=== PATIENT | female | born 1945 | race Hispanic/Latino ===

== ENCOUNTER 2016-09-30 06:21 | Observation (INO) | payer MEDICARE, OTHER ==
[2016-09-30] MEDS ORDERED: Bupivacaine 0.5% Inj(30mL) ONE (07:24)
[2016-09-30] MEDS ORDERED: Propofol 10 mg/ml Inj (20 ML) ONE (07:37)
[2016-09-30] MEDS ORDERED: Lidocaine 1% Inj (20ml) ONE (07:37)
[2016-09-30] MEDS ORDERED: Sevoflurane - Inhalation Anesthetic Liq (250 ml) ONE (07:37)
[2016-09-30] MEDS ORDERED: Succinylcholine 200 mg/10 ml Inj IV ONE (07:37)
[2016-09-30] MEDS ORDERED: Rocuronium 10 mg/ml (5 ml) ONE (07:37)
[2016-09-30] MEDS ORDERED: Neostigmine Methylsulfate 3mg/3ml Syringe IV ONE (09:01)
[2016-09-30] MEDS ORDERED: Lactated Ringer's 1,000 ML IV SCH (10:19)
[2016-09-30] MEDS ORDERED: HYDROmorphone 0.5 mg/0.5 ml ISec IVP PRN (10:19)
--- NOTE | 2016-09-30 10:24 | PCM.SURG1 ---
Surgeon's Initial Post Op Note - Surgeon's Notes Surgeon: Dr. Lawson Motor Block Mechanic: Dr. Santiago PGY3, Dr. Villalpando PGY1 Type of Anesthesia: General IV, IV Sedation Pre-Operative Diagnosis: Incisional Hernia Operative Findings: Adhesions to the abdominal wall. Defect did not have bowel in defect. Post-Operative Diagnosis: same Operation Performed: Incisional Hernia repair with mesh placement Specimen/Specimens Removed: Mesh placed Estimated Blood Loss: EBL {In ML}: 5 Post-Op Condition: Good Date of Surgery/Procedure: 09/30/16 Time of Surgery/Procedure: 08:30
[2016-09-30] MEDS ORDERED: HYDROmorphone 0.5 mg/0.5 ml ISec ONE ×2 (11:22→11:42)
[2016-09-30] MEDS ORDERED: HYDROmorphone 0.5 mg/0.5 ml ISec IVP ONE (11:43)
[2016-09-30 15:50] VITALS: RESP 18
[2016-09-30] MEDS ORDERED: Oxycodone/Acetaminophen 5/325 mg Tab PO PRN (16:04)
[2016-09-30] MEDS ORDERED: Sodium Chloride 0.9% 1,000 ML IV STA ×2 (16:11→22:14)
[2016-09-30 18:37] VITALS: BMI 20.9
[2016-09-30] MEDS: Benzocaine/Menthol (Cepacol) Lozenge MT PRN (20:31)
[2016-10-01] MEDS: Benzocaine/Menthol (Cepacol) Lozenge MT PRN ×2 (04:22→11:37)
[2016-10-01] MEDS: Oxycodone/Acetaminophen 5/325 mg Tab PO PRN ×2 (07:01→12:43)
[2016-10-01 07:36] LABS: BASO # 0.01 K/mm3 (0.0-2.0); BASO % 0.1 % (0.0-3.0); EOS # 0.1 (0.0-0.7); EOS % 1.7 % (1.5-5.0); GRAN # 4.75 (1.4-6.5); GRAN % 67.8 % (50.0-68.0); HEMOGLOBIN 10.8 gm/dL (12.0-16.0); LYMPH # 1.5 (1.2-3.4); LYMPH % 21.3 % (22.0-35.0); MEAN CELL VOLUME 89.2 fL (80.0-105.0); MEAN CORPUSCULAR HEMOGLOBIN 28.4 pg (25.0-35.0); MEAN CORPUSCULAR HGB CONC 31.9 g/dl (31.0-37.0); MEAN PLATELET VOLUME 9.9 fl (7.0-11.0); MONO # 0.6 (0.1-0.6); MONO % 9.1 % (1.0-6.0); PLATELET COUNT 146 10^3/uL (120.0-450.0); RED CELL DISTRIBUTION WIDTH 14.6 % (11.5-14.5)
[2016-10-01 07:46] LABS: BLOOD UREA NITROGEN 20 mg/dL (7-21); CALCIUM 8.3 mg/dL (8.4-10.5); GFR AFRICAN-AMERICAN > 60; GFR NON-AFRICAN AMERICAN > 60
[2016-10-01] MEDS ORDERED: MULTIVIT IRON MIN PO SCH (10:00)
[2016-10-01] MEDS ORDERED: FOLIC ACID PO SCH (10:00)
[2016-10-01] MEDS ORDERED: HYDROCHLOROTHIAZIDE PO SCH (10:00)
[2016-10-01] MEDS ORDERED: OLMESARTAN PO SCH (10:00)
[2016-10-01] MEDS ORDERED: [UNRECOGNIZED DRUG - OTHER] PO SCH (10:00)
--- NOTE | 2016-10-01 11:29 | RAD ---
PROCEDURE: Left Knee Radiographs. HISTORY: Pain. COMPARISON: None. FINDINGS: BONES: Normal. No fracture. JOINTS: There is moderate joint space narrowing medial compartment JOINT EFFUSION: None. OTHER FINDINGS: None. IMPRESSION: Moderate joint space narrowing medial compartment
--- NOTE | 2016-10-01 16:29 | CP.PCM.PN ---
Subjective - Date & Time of Evaluation Date of Evaluation: 10/01/16 Time of Evaluation: 16:30 - Subjective Subjective: General Surgery- Dr. Lawson Pt seen and examined. She does not want to leave due to continued dizziness post -op. Had a similar episode 2 years ago that spontaneously resolved after 4- 6months. Pain is manageable, denies N/V CP SOB VEGA. Tolerating diet, ambulates with assistance due to dizziness. Objective - Vital Signs/Intake and Output Vital Signs (last 24 hours): Temp Pulse Resp BP Pulse Ox 98 F 60 18 100/60 97 10/01/16 07:30 10/01/16 09:19 10/01/16 07:30 10/01/16 09:19 10/01/16 07:30 Intake and Output: 10/01/16 10/01/16 06:59 18:59 Intake Total 720 840 Balance 720 840 - Medications Medications: Current Medications Acetaminophen (Tylenol 325mg Tab) 650 mg PO Q4H PRN PRN Reason: Pain, moderate (4-7) Last Admin: 10/01/16 04:22 Dose: 650 mg Aspirin (Ecotrin) 81 mg PO DAILY [facility] Last Admin: 10/01/16 09:19 Dose: 81 mg Atorvastatin Calcium (Lipitor) 20 mg PO DAILY [facility] Last Admin: 10/01/16 09:20 Dose: 20 mg Benzocaine/Menthol (Cepacol Sore Throat) 1 ricky MT Q2H PRN PRN Reason: Sore Throat Last Admin: 10/01/16 11:37 Dose: 1 ricky Hydrochlorothiazide (Microzide) 12.5 mg PO DAILY [facility] Last Admin: 10/01/16 09:20 Dose: 12.5 mg Letrozole (Femara) 2.5 mg PO DAILY [facility] Last Admin: 10/01/16 11:38 Dose: 2.5 mg Losartan Potassium (Cozaar) 50 mg PO DAILY [facility] Last Admin: 10/01/16 09:19 Dose: 50 mg Meclizine HCl (Antivert) 25 mg PO Q6H [facility] Last Admin: 10/01/16 11:37 Dose: 25 mg Non-Formulary Medication (Multivit,Iron,Min 5/Folic Acid [Strovite Forte Caplet] ) 1 tab PO DAILY [facility] Last Admin: 10/01/16 09:23 Dose: Not Given Ondansetron HCl (Zofran Inj) 4 mg IVP Q4 PRN PRN Reason: Nausea/Vomiting Oxycodone/Acetaminophen (Percocet 5/325 Mg Tab) 1 tab PO Q4H PRN PRN Reason: Pain, moderate (4-7) Stop: 10/04/16 06:52 Last Admin: 10/01/16 12:43 Dose: 1 tab - Labs Labs: 10/01/16 06:45 10/01/16 06:45 - Constitutional Appears: No Acute Distress - Eye Exam Eye Exam: EOMI, PERRL. absent: Periorbital swelling, Scleral icterus Pupil Exam: PERRL. absent: Miosis - Neck Exam Neck Exam: Full ROM, Normal Inspection - Respiratory Exam Respiratory Exam: Clear to Ausculation Bilateral, NORMAL BREATHING PATTERN. absent: Accessory Muscle Use, Rhonchi, Wheezes - Cardiovascular Exam Cardiovascular Exam: REGULAR RHYTHM, +S1, +S2 - GI/Abdominal Exam GI & Abdominal Exam: Soft, Tenderness. absent: Distended, Firm, Guarding Additional comments: appropriately tender around incision - Extremities Exam Extremities Exam: Normal Capillary Refill - Neurological Exam Neurological Exam: Awake, CN II-XII Intact, Oriented x3. absent: Motor Sensory Deficit - Psychiatric Exam Psychiatric exam: Agitated - Skin Skin Exam: Normal Color Assessment and Plan - Assessment and Plan (Free Text) Assessment: 71F with dizziness POD#1 incisional hernia repair with mesh Plan: - Dizziness post op, most likely BPPV * Pt refused to do Blaise-Halpike maneuver - will follow Dr. Ori loya to treat dizziness - no surgical intervention at this time - plan to discharge tomorrow will discuss with Dr. Renny Villalpando PGY1
--- NOTE | 2016-10-01 19:28 | US ---
HISTORY: Leg pain and swelling. Evaluate for DVT PHYSICIAN(S): Rajan Victoria MD. TECHNIQUE: Duplex sonography and color-flow Doppler with graded compression were used to evaluate the deep venous systems of both lower extremities. FINDINGS: The visualized deep venous systems of both lower extremities are sonographically normal and compressible. Normal wave forms and augmentation are seen. There is no sonographic evidence for deep venous thrombosis in the visualized segments of both lower extremities. IMPRESSION: No sonographic evidence for deep venous thrombosis in the visualized segments of both lower extremities.
[2016-10-02] MEDS: Benzocaine/Menthol (Cepacol) Lozenge MT PRN ×2 (02:55→09:48)
[2016-10-02] MEDS: Oxycodone/Acetaminophen 5/325 mg Tab PO PRN ×2 (08:49→14:04)
[2016-10-02] MEDS ORDERED: Multivitamin With Minerals Tab PO SCH (09:32)
[2016-10-02 09:50] VITALS: BP 120/62; PULSE 70
[2016-10-02 10:41] VITALS: TEMP 98.2; O2SAT 96
--- NOTE | 2016-10-02 11:39 | CP.PCM.DIS ---
Provider - Provider Date of Admission: 10/01/16 16:18 Attending physician: Amaury Lawson MD Primary care physician: Filippo Rehman MD Consults: Dr. Rehman Time Spent in preparation of Discharge (in minutes): 30 Hospital Course - Lab Results Lab Results: Most Recent Lab Values WBC 7.0 10^3/ul (4.5-11.0) D 10/01/16 06:45 RBC 3.80 10^6/uL (3.5-6.1) 10/01/16 06:45 Hgb 10.8 gm/dL (12.0-16.0) L 10/01/16 06:45 Hct 33.9 % (36.0-48.0) L 10/01/16 06:45 MCV 89.2 fL (80.0-105.0) 10/01/16 06:45 MCH 28.4 pg (25.0-35.0) 10/01/16 06:45 MCHC 31.9 g/dl (31.0-37.0) 10/01/16 06:45 RDW 14.6 % (11.5-14.5) H 10/01/16 06:45 Plt Count 146 10^3/uL (120.0-450.0) 10/01/16 06:45 MPV 9.9 fl (7.0-11.0) 10/01/16 06:45 Gran % 67.8 % (50.0-68.0) 10/01/16 06:45 Lymph % (Auto) 21.3 % (22.0-35.0) L 10/01/16 06:45 Cam[place] % (Auto) 9.1 % (1.0-6.0) H 10/01/16 06:45 Eos % (Auto) 1.7 % (1.5-5.0) 10/01/16 06:45 Baso % (Auto) 0.1 % (0.0-3.0) 10/01/16 06:45 Gran # 4.75 (1.4-6.5) 10/01/16 06:45 Lymph # 1.5 (1.2-3.4) 10/01/16 06:45 Cam[place] # 0.6 (0.1-0.6) 10/01/16 06:45 Eos # 0.1 (0.0-0.7) 10/01/16 06:45 Baso # 0.01 K/mm3 (0.0-2.0) 10/01/16 06:45 Sodium 140 mmol/L (132-148) 10/01/16 06:45 Potassium 3.8 mmol/L (3.6-5.0) 10/01/16 06:45 Chloride 107 mmol/L (95-110) 10/01/16 06:45 Carbon Dioxide 25 mmol/L (21-33) 10/01/16 06:45 Anion Gap 12 (10-20) 10/01/16 06:45 BUN 20 mg/dL (7-21) 10/01/16 06:45 Creatinine 0.9 mg/dL (0.5-1.4) 10/01/16 06:45 Est GFR ( Amer) > 60 10/01/16 06:45 Est GFR (Non-Af Amer) > 60 10/01/16 06:45 Random Glucose 84 mg/dL (70-110) 10/01/16 06:45 Calcium 8.3 mg/dL (8.4-10.5) L 10/01/16 06:45 - Hospital Course Hospital Course: Pt presented to same day surgery for repair of incisional hernia. Pt under went laparosopic incisional hernia repair with mesh. Pt tolerated the procedure well. Pt later developed dizziness and was kept for observation . Pt was seen by her primary care physician and was treated for dizziness. Pt is no longer complaining of dizziness and cleared for discharge. Discharge Exam - Head Exam Head Exam: ATRAUMATIC - Eye Exam Eye Exam: EOMI, Normal appearance - Respiratory Exam Respiratory Exam: NORMAL BREATHING PATTERN. absent: Accessory Muscle Use, Chest Wall Tenderness, Rales, Rhonchi, Wheezes - Cardiovascular Exam Cardiovascular Exam: REGULAR RHYTHM, +S1, +S2. absent: Gallop, Rubs - GI/Abdominal Exam GI & Abdominal Exam: Normal Bowel Sounds, Soft. absent: Firm, Guarding Additional comments: appropriately tender around incision - Extremities Exam Extremities exam: full ROM - Neurological Exam Neurological exam: Alert, CN II-XII Intact, Oriented x3 - Psychiatric Exam Psychiatric exam: Normal Affect, Normal Mood - Skin Skin Exam: Intact, Normal Color Discharge Plan - Discharge Medications Prescriptions: Meclizine [Meclizine*] 25 mg PO Q6H #30 tab - Follow Up Plan Condition: GOOD Disposition: HOME/ ROUTINE Additional Instructions: May shower, do not soak in tub or go swimming in the ocean. Can eat regular foods. No lifting over 10lbs for 4-6 weeks. See back in office within 1 week. Referrals: Filippo Rehman MD [Primary Care Provider] - Amaury Lawson MD [Staff Provider] -
--- NOTE | 2016-10-11 15:55 | OP ---
PROCEDURE DATE: 10/03/2016 PREOPERATIVE DIAGNOSIS: Ventral hernia. POSTOPERATIVE DIAGNOSIS: Ventral hernia. PROCEDURE: Laparoscopic ventral herniorrhaphy. DESCRIPTION OF PROCEDURE: In the operating room, the patient was identified, name of procedure, laterality, and my wander. The palpated ventral hernia was seen and after the successful time out with the patient was identified by name, number, procedure, laterality, my wander and the consent form. The patient had an NG tube and Smiley placed. The prepped belly was unexposed from the left flank with the patient then rolled from the operative side. On the left side, a subcostal incision was made that was dissected down to the fascia. The Visiport was placed after the wound was injected with about 2 L of CO2. The Visiport entered the abdomen nicely. There were some adhesions by the hernia, but after 2 elective 5 mm ports were placed in the left lower quadrant and by the ASIS, the dissection proceeded nicely. There were some crossing of instruments, but very quickly we were able to get the hernia reduced to see good clean edges. The hernia mesh was measured and the reasonable size was placed. The stitch was placed laparoscopically to close the defect rather nicely. This having been done, the mesh was placed on top of it with a single suture in the midline to center the mesh. sutured with 2 rolls of jamir. The centering stitch was cut. The wounds were injected with Marcaine. Looking around, nothing else was untoward. There was no bleeding. There were no issues. The CO2 was removed. The port was then closed under direct vision manually. The patient was taken to recovery room in good condition and correct. Amaury Lawson MD
== END 2016-10-02 17:17 | disposition home or self-care (01) ==
LOC: SDS 06:21 → 5RSO 17:48 → SDS 17:48 → 5RSO 10-01 16:18
PROVIDERS: ADMIT Surgery; ATTEND Surgery
DX: K43.2 Incisional hernia without obstruction or gangrene (principal); T88.8XXA Other specified complications of surgical and medical care, not elsewhere classified, initial encounter; H81.10 Benign paroxysmal vertigo, unspecified ear; I10 Essential (primary) hypertension
CPT/HCPCS: 36415; 49654; 73560; 80048; 85025; 93970; C1781; G0378; J0330; J0690; J1170; J1885; J2405; J2704; J2710; J3010; J7040; J7120

== ENCOUNTER 2017-01-05 09:46 | Inpatient (IN) | payer MEDICARE, OTHER ==
--- NOTE | 2017-01-05 10:35 | ED PDOC ---
Arrival/HPI - General Chief Complaint: Trauma Time Seen by Provider: 01/05/17 10:00 Historian: Patient - History of Present Illness Narrative History of Present Illness (Text): 01/05/17 10:20 A 71 year old female, whose past medical history includes abdominal hernia, presents to the emergency department complaining of dizziness and fall. Patient reports yesterday she fell while walking down the stairs and was helped up afterwards. She states that after fall she initially had some difficulty walking. She is unable to describe to me how she fell, but does not believe she lost consciousness. States prior to the fall she had not been experiencing any chest pain or palpitations or shortness of breath or any symptoms. After falling, she reports difficulty ambulating and persistent dizziness. Denies loss of vision. Denies neck pain. Denies weakness, but reports some difficulty moving her right leg she believes is secondary to the pain. Denies hip or back or pelvis pain. Denies melena or hematuria or bloody stools. No PMD 01/05/17 17:34 Time/Duration: 24 hours Past Medical History - Provider Review Nursing Documentation Reviewed: Yes - Infectious Disease Hx of Infectious Diseases: None - Cardiac Hx Cardiac Disorders: Yes Hx Pacemaker: No - Pulmonary Hx Respiratory Disorders: Yes Hx Chronic Obstructive Pulmonary Disease (COPD): (SOB Dyspnea) Hx Pneumonia: Yes Hx Pulmonary Embolism: Yes - Neurological Hx Neurological Disorder: Yes HX Cerebrovascular Accident: Yes (rt leg weaness) - HEENT Hx HEENT Disorder: No - Renal Hx Renal Disorder: No - Endocrine/Metabolic Hx Endocrine Disorders: No - Hematological/Oncological Hx Blood Disorders: Yes Hx Cancer: Yes (Right Breast CA with Lumpectomy) Other/Comment: Received chemo - Integumentary Hx Dermatological Disorder: No - Musculoskeletal/Rheumatological Hx Musculoskeletal Disorders: Yes (BACK PAIN AT TIMES) Hx Arthritis: Yes Hx Falls: No - Gastrointestinal Hx Gastrointestinal Disorders: Yes Hx Gastroesophageal Reflux: Yes - Genitourinary/Gynecological Hx Genitourinary Disorders: Yes Hx Prostate Cancer: Yes (rt breast) - Psychiatric Hx Psychophysiologic Disorder: No Hx Emotional Abuse: No Hx Physical Abuse: No Hx Substance Use: No - Surgical History Other/Comment: Right Breat Lumpectomy - Anesthesia Hx Anesthesia: Yes Hx Anesthesia Reactions: No Hx Malignant Hyperthermia: No - Suicidal Assessment Feels Threatened In Home Enviroment: No Family/Social History - Physician Review Nursing Documentation Reviewed: Yes Family/Social History: No Known Family HX Smoking Status: Never Smoked Hx Alcohol Use: No Hx Substance Use: No Allergies/Home Meds Allergies/Adverse Reactions: Allergies iodine Allergy (Severe, Verified 01/05/17 09:49) SWELLING Home Medications: Home Meds Medication Instructions Recorded Confirmed Atorvastatin [Lipitor] 20 mg PO DAILY 03/18/15 01/05/17 Aspirin [Ecotrin] 81 mg PO DAILY 07/31/16 01/05/17 Letrozole [Femara] 2.5 mg PO DAILY 09/30/16 01/05/17 Apixaban [Eliquis] 5 mg PO BID 01/05/17 01/05/17 Olmesartan/Hydrochlorothiazide 1 tab PO DAILY 01/05/17 01/05/17 [Benicar Hct 20-12.5 mg Tablet] Review of Systems - Review of Systems Constitutional: Fatigue. absent: Fevers Eyes: absent: Vision Changes, Photophobia, Eye Pain ENT: absent: Hearing Changes, Sore Throat, Rhinorrhea Respiratory: absent: SOB Cardiovascular: absent: Chest Pain, Palpitations, [place]O Gastrointestinal: absent: Abdominal Pain, Nausea, Vomiting Genitourinary Female: absent: Dysuria, Frequency Musculoskeletal: Other (left ankle, right knee, and posterior head pain). absent: Back Pain Skin: absent: Rash Neurological: Dizziness. absent: Focal Weakness, Speech Changes Endocrine: absent: Polyuria, Polydipsia Hemo/Lymphatic: absent: Easy Bleeding, Easy Bruising Psychiatric: absent: Depression, Suicidal Ideation Physical Exam - Physical Exam Narrative Physical Exam (Text): Head: Atraumatic. Normocephalic. No deformity. No soft tissue swelling. Eyes: PERRL. EOMI. Conjunctivae are not pale. Visual acuity and visual ENT: Mucous membranes are moist and intact. Oropharynx is clear and symmetric. No orbital tenderness. Neck: Supple. Full ROM. No JVD. No lymphadenopathy. No midline tenderness. No soft tissue swelling. Trachea midline. Cardiovascular: Regular rate. Regular rhythm. No murmurs, rubs, or gallops. Distal pulses are 2+ and symmetric. Pulmonary/Chest: No evidence of respiratory distress. Clear to auscultation bilaterally. No wheezing, rales or rhonchi. Abdominal: Soft and non-distended. There is no tenderness. No rebound, guarding, or rigidity. No organomegaly. Good bowel sounds. Back: No CVA tenderness. No midline back pain. No deformity. No pain with straight leg testing. Extremities: No edema. No cyanosis. No clubbing. There is NO hip pain bilaterally with rotation or range of motion. There is pain lateral aspect of right knee with soft tissue swelling, mild, no ligamentous laxity, negative Drawer's sign. No achilled pain. There is mild pain lateral aspect of left ankle over malleolus but minimal swelling, no deformity. No left knee pain noted. No deformity to shoulder/elbow/wrist pain with ROM or on palpation. Skin: Skin is warm and dry. No petechiae. No purpura. No lacerations. Neurological: Alert, awake, and oriented to person, place, time, and situation. Normal speech. No facial droop. Patient dizzy when sitting up and standing with gait instability. Patient with some difficulty lifting right leg and holding off bed for more than 5 seconds suspect secondary to pain vs. muscle weakness as reflexes intact. No focal weakness in upper extremities. Psychiatric: Good eye contact. Normal interaction, affect, and behavior. 01/05/17 17:37 Vital Signs Reviewed: Yes Vital Signs Temp Pulse Resp BP Pulse Ox 01/05/17 16:42 80 18 128/67 98 01/05/17 15:00 82 18 124/78 98 01/05/17 11:47 71 18 122/67 99 01/05/17 09:55 98.0 F 72 17 115/71 98 Temperature: Afebrile Blood Pressure: Normal Pulse: Regular Respiratory Rate: Normal Appearance: Positive for: Uncomfortable Pain Distress: Moderate Mental Status: Positive for: Alert and Oriented X 3 Medical Decision Making ED Course and Treatment: 01/05/17 10:26 Impression: 71 year old female with dizziness and fall. Patient reports head injury, on blood thinner, reports persistent dizziness. Plan: -- EKG -- Head CT -- Chest X-ray -- Left Ankle X-Ray -- Right Knee X-Ray -- Labs -- Urinalysis -- Reassess and disposition Progress Notes: Patient's history reviewed multiple times. She states she recently fell, but denies loc but is uncertain how she fell. CT head obtained as patient with dizziness after head injury, on blood thinner. CT head ordered and read by radiologist: 01/05/2017 12:[address] IMPRESSION: No acute intracranial hemorrhage. Suspect minimal chronic periventricular white matter ischemic changes. Mild generalized volume loss. Dictator: Joseph Stokes DO Patient with knee pain, but nv intact with no hip pain. I suspect difficulty with movements of right leg secondary to musculoskeletal etiology. 01/05/2017 13:33 Knee X-Ray IMPRESSION: No acute displaced fracture no dislocation. Mild DJD. Dictator: Joseph Stokes DO 01/05/2017 13:36 Chest X-ray IMPRESSION: No active disease. Dictator: Joseph Stokes DO On re-exam, she is unable to ambulate initially as she reports dizziness. She is not hypotensive, she is not complaining of recent URI, symptoms not worse with turning head. She reports that "I've had a stroke before that affected my leg". I reviewed past available MRI from previous year. Given persistent dizziness, right leg pain, will admit for observation for serial neuro exams, ? concussive symptoms, monitoring for uncertain circumstance of fall to evaluate for arrhythmia, cardiovascular disease, and consult ortho. Treatment plan discussed with PMD Dr. Suad Rehman, accepts admission to his service. I reviewed imaging studies as well as limitations of these studies with patient, as she is persistently symptomatic will admit for observation, patient agreeable to treatment plan. Patient continues to deny chest pain or shortness of breath, no calf pain, no hypoxia. 01/05/17 18:04 Abnormal findings on chest xray as interpreted by radiologist reviewed and communicated. Patient at this time with no chest pain or shortness of breath. No hemoptysis. I reviewed previous chest xray available from prior Emergency room visit and this finding was noted. Communicated with PMD abnormal findings for follow-up. - Lab Interpretations Lab Results: 01/05/17 10:37 01/05/17 10:37 Lab Results 01/05/17 10:37: Sodium 140, Potassium 4.4, Chloride 101, Carbon Dioxide 30, Anion Gap 13, BUN 21, Creatinine 0.9, Est GFR ( Amer) > 60, Est GFR (Non- Af Amer) > 60, Random Glucose 102, Calcium 9.5, Total Bilirubin 0.6, AST 33, ALT 24, Alkaline Phosphatase 55, Lactate Dehydrogenase 590, Total Creatine Kinase 93, Troponin I < 0.01, Total Protein 7.2, Albumin 4.2, Globulin 3.0, Albumin/Globulin Ratio 1.4 01/05/17 10:37: PT 10.7, INR 0.99, APTT 28.7 01/05/17 10:37: WBC 5.9, RBC 4.34, Hgb 12.4, Hct 38.2, MCV 88.0, MCH 28.6, MCHC 32.5, RDW 13.6, Plt Count 164, MPV 10.7, Gran % 57.3, Lymph % (Auto) 28.8, [place] % (Auto) 11.5 H, Eos % (Auto) 2.2, Baso % (Auto) 0.2, Gran # 3.38, Lymph # 1.7, [facility] # 0.7 H, Eos # 0.1, Baso # 0.01 I have reviewed the lab results: Yes - RAD Interpretation Radiology Orders: 01/05/17 10:26 HEAD W/O CONTRAST [CT] Stat 01/05/17 10:27 CHEST ONE VIEW [RAD] Stat 01/05/17 10:28 ANKLE LEFT 3 VIEWS ROUTINE [RAD] Stat KNEE RIGHT 2 VIEWS (AP & LAT) [RAD] Stat - EKG Interpretation EKG Interpretation (Text): 01/05/17 17:42 EKG at 12:45 normal sinus rhythm rate of 67 wth incomplete right bundle branch block, left anterior fascicular block Interpreted by ED Physician: Yes Type: 12 lead EKG - Medication Orders Current Medication Orders: Discontinued Medications Acetaminophen (Tylenol 325mg Tab) 650 mg PO ONCE STA Stop: 01/05/17 12:56 Last Admin: 01/05/17 13:06 Dose: 650 mg [facility] Pain/Vitals Document 01/05/17 13:06 EWO (Rec: 01/05/17 13:06 [id number] [id number]) Pain Reassessment Is This A Pain ReAssessment? No Sleep Is patient sleeping during reassessment? No Presence of Pain Presence of Pain No Pain Scale Used Pain Scale Used Numeric Location Left, Right or Bilateral Left Pain Location Body Site Knee Description Intermittent - Scribe Statement The provider has reviewed the documentation as recorded by the Amy Tse Provider Scribe Attestation: All medical record entries made by the Stevenibe were at my direction and personally dictated by me. I have reviewed the chart and agree that the record accurately reflects my personal performance of the history, physical exam, medical decision making, and the department course for this patient. I have also personally directed, reviewed, and agree with the discharge instructions and disposition. Disposition/Present on Arrival - Present on Arrival Any Indicators Present on Arrival: Yes History of DVT/PE: Yes History of Uncontrolled Diabetes: No Urinary Catheter: No History of Decub. Ulcer: No History Surgical Site Infection Following: None - Disposition Have Diagnosis and Disposition been Completed?: Yes Diagnosis: Dizziness, Right leg pain, Gait disturbance Disposition: HOSPITALIZED Disposition Time: 12:00 Patient Plan: Admission, Observation Patient Problems: Current Active Problems Problem Status Onset Dizziness Acute Gait disturbance Acute Right leg pain Acute Condition: FAIR
[2017-01-05 10:51] LABS: ALB/GLOB RATIO 1.4 (1.1-1.8); ALKALINE PHOSPHATASE 55 U/L (38-126); ALT/SGPT 24 U/L (7-56); AST/SGOT 33 U/L (14-36); BASO # 0.01 K/mm3 (0.0-2.0); BASO % 0.2 % (0.0-3.0); BILIRUBIN,TOTAL 0.6 mg/dL (0.2-1.3); BLOOD UREA NITROGEN 21 mg/dL (7-21); CALCIUM 9.5 mg/dL (8.4-10.5); CARBON DIOXIDE 30 mmol/L (21-33); CHLORIDE 101 mmol/L (98-107); EOS # 0.1 (0.0-0.7); EOS % 2.2 % (1.5-5.0); GFR AFRICAN-AMERICAN > 60; GLUCOSE,RANDOM 102 mg/dL (70-110); GRAN # 3.38 (1.4-6.5); GRAN % 57.3 % (50.0-68.0); HEMATOCRIT 38.2 % (36.0-48.0); LYMPH # 1.7 (1.2-3.4); LYMPH % 28.8 % (22.0-35.0); MEAN CORPUSCULAR HEMOGLOBIN 28.6 pg (25.0-35.0); MEAN CORPUSCULAR HGB CONC 32.5 g/dl (31.0-37.0); MEAN PLATELET VOLUME 10.7 fl (7.0-11.0); MONO # 0.7 (0.1-0.6); MONO % 11.5 % (1.0-6.0); RED CELL DISTRIBUTION WIDTH 13.6 % (11.5-14.5); SODIUM 140 mmol/L (132-148); TOTAL PROTEIN 7.2 g/dL (5.8-8.3); WHITE BLOOD COUNT 5.9 10^3/ul (4.5-11.0)
[2017-01-05 10:52] LABS: POTASSIUM 4.4 mmol/L (3.6-5.0)
[2017-01-05 11:03] LABS: TROPONIN I < 0.01 ng/mL
[2017-01-05 11:08] LABS: INR 0.99 (0.93-1.08); PARTIAL THROMBOPLASTIN TIME 28.7 Seconds (23.7-30.8)
--- NOTE | 2017-01-05 12:05 | CT ---
PROCEDURE: CT HEAD WITHOUT CONTRAST. HISTORY: head injury COMPARISON: None available. TECHNIQUE: Axial computed tomography images were obtained through the head/brain without intravenous contrast. Radiation dose: Total exam DLP = 726.57 mGy-cm. This CT exam was performed using one or more of the following dose reduction techniques: Automated exposure control, adjustment of the mA and/or kV according to patient size, and/or use of iterative reconstruction technique. FINDINGS: HEMORRHAGE: No acute parenchymal, subarachnoid or extra-axial the the the hemorrhage. BRAIN: Suspect minimal chronic periventricular white matter ischemic changes. Additionally, there are a few scattered chronic bilateral basal nuclei lacunar type infarcts. . Mild generalized volume loss. . Minor vascular calcifications both carotid siphons VENTRICLES: No obstructive hydrocephalus. CALVARIUM: No acute calvarial fractures. PARANASAL SINUSES: Unremarkable as visualized. No significant inflammatory changes. MASTOID AIR CELLS: Unremarkable as visualized. No inflammatory changes. OTHER FINDINGS: None. IMPRESSION: No acute intracranial hemorrhage. Suspect minimal chronic periventricular white matter ischemic changes. Mild generalized volume loss.
--- NOTE | 2017-01-05 13:35 | RAD ---
PROCEDURE: Right Knee Radiographs. HISTORY: knee pain after fall COMPARISON: None. FINDINGS: BONES: No evidence of acute displaced fracture nor dislocation. . JOINTS: Mild affecting the medial compartment. There is medial joint space narrowing with small to medium-sized marginal medial osteophyte formation. Slight spurring of the tibial spines. Tiny posterior patellar osteophytes. . . There may also be very tiny early at anterior superior patella enthesophyte formation JOINT EFFUSION: No significant joint effusion is identified OTHER FINDINGS: None. IMPRESSION: No acute displaced fracture nor dislocation. Mild DJD
--- NOTE | 2017-01-05 13:38 | RAD ---
PROCEDURE: CHEST RADIOGRAPH, 1 VIEW HISTORY: weakness COMPARISON: None available. FINDINGS: LUNGS: Clear. PLEURA: No pneumothorax or pleural fluid seen. CARDIOVASCULAR: Normal. OSSEOUS STRUCTURES: No significant abnormalities. VISUALIZED UPPER ABDOMEN: Normal. OTHER FINDINGS: Re- demonstrated is what appears to represent a discontinuous/broken remnant of catheter within the left subclavian and brachiocephalic vein extending into the SVC. IMPRESSION: No active disease.
--- NOTE | 2017-01-05 15:05 | RAD ---
PROCEDURE: Left ankle dated 01/05/2017 HISTORY: ankle pain COMPARISON: None FINDINGS: BONES: No evidence of acute displaced fracture nor dislocation. The osseous structures including the talar dome intact. Small plantar and tiny posterior calcaneal surface enthesophytes. JOINTS: Normal. No osteoarthritis. Ankle mortise maintained. SOFT TISSUES: Normal. OTHER FINDINGS: None. IMPRESSION: No acute fractures. If symptoms persist or occult fracture suspected clinically recommend repeat radiographs in 7-10 days as most fractures should become radiographically evident in this timeframe.
[2017-01-05 17:30] LABS: PH,URINE 6.5 (4.7-8.0); URINE BILIRUBIN NEGATIVE (NEGATIVE); URINE BLOOD TRACE-LYSED (NEGATIVE); URINE GLUCOSE (UA) NEGATIVE (NEGATIVE); URINE KETONE NEGATIVE (NEGATIVE); URINE LEUKOCYTE ESTERASE TRACE Leu/uL (NEGATIVE); URINE PROTEIN NEGATIVE mg/dL (<30 mg/dL); URINE UROBILINOGEN 0.2 E.U./dL (<1 E.U./dL)
[2017-01-05 17:34] LABS: URINE APPEARANCE CLEAR (CLEAR); URINE COLOR YELLOW (YELLOW)
[2017-01-05 17:44] LABS: URINE BACTERIA FEW (NEG); URINE RBC 0 - 2 /hpf (0-2)
[2017-01-05 18:33] VITALS: BMI 25.9
[2017-01-06] MEDS ORDERED: MethylPREDNISolone Depo 40 mg/ml Inj IM ONE (08:28)
[2017-01-06] MEDS ORDERED: Bupivacaine 0.5% Inj(30mL) IJ ONE (08:28)
--- NOTE | 2017-01-06 09:34 | CP.PCM.CON ---
<Lizabeth Hammonds - Last Filed: 01/06/17 11:44> History of Present Illness - History of Present Illness History of Present Illness: Neurology Consult Note for Yolanda Narvaez PGY2 Reason for consult: dizziness/fall This is a 71Y F with PMH HTN, DVT (on Eliquis), Breast ca s/p mastectomy who came to ED for dizziness and fall. Patient reports she was walking down the street when all of a sudden she felt dizzy and her legs gave out. She said it all happened so fast so she is not sure if she lost consciousness. She does not know if the room was spinning or if she felt light headed. She denies having any changes in vision, CP, SOB, slurred speech, n/v/d, new numbness or tingling. She reports having pain in her L knee where she fell and has pain in the back of her R leg. She states sometimes she has numbness/tingling at the bottom of her feet which comes and goes. Head CT was negative for acute pathology and showed minimal chronic white matter changes. XR knee and ankle were negative for fracture PMH: HTN, DVT (on Eliquis), Breast ca s/p mastectomy PSH: R mastectomy, , hernia repair Home meds: As per mar All: iodine SH: Denies EtOH, drug or tobacco use. Lives alone Review of Systems - Review of Systems All systems: reviewed and no additional remarkable complaints except Review of Systems: + fall, weakness, R knee pain Past Patient History - Infectious Disease Hx of Infectious Diseases: None - Past Social History Smoking Status: Never Smoked Alcohol: None Drugs: Denies Home Situation {Lives}: Alone - CARDIAC Hx Cardiac Disorders: Yes Hx Pacemaker: No - PULMONARY Hx Respiratory Disorders: Yes Hx Chronic Obstructive Pulmonary Disease (COPD): (SOB Dyspnea) Hx Pneumonia: Yes - NEUROLOGICAL Hx Neurological Disorder: Yes HX Cerebrovascular Accident: Yes (rt leg weaness) - HEENT Hx HEENT Problems: No - RENAL Hx Chronic Kidney Disease: No - ENDOCRINE/METABOLIC Hx Endocrine Disorders: No - HEMATOLOGICAL/ONCOLOGICAL Hx Blood Disorders: Yes Hx Cancer: Yes (Right Breast CA with Lumpectomy) Other/Comment: Received chemo - INTEGUMENTARY Hx Dermatological Problems: No - MUSCULOSKELETAL/RHEUMATOLOGICAL Hx Falls: No - GASTROINTESTINAL Hx Gastrointestinal Disorders: Yes Hx Gastroesophageal Reflux: Yes - GENITOURINARY/GYNECOLOGICAL Hx Genitourinary Disorders: Yes - PSYCHIATRIC Hx Psychophysiologic Disorder: No Hx Emotional Abuse: No Hx Physical Abuse: No - SURGICAL HISTORY Other/Comment: Right Breat Lumpectomy - ANESTHESIA Hx Anesthesia: Yes Hx Anesthesia Reactions: No Hx Malignant Hyperthermia: No Meds Allergies/Adverse Reactions: Allergies Allergy/AdvReac Type Severity Reaction Status Date / Time iodine Allergy Severe SWELLING Verified 01/05/17 09:49 Physical Exam - Constitutional Appears: Younger Than Stated Age - Head Exam Head Exam: ATRAUMATIC, NORMAL INSPECTION, NORMOCEPHALIC - Eye Exam Eye Exam: Normal appearance, PERRL Pupil Exam: NORMAL ACCOMODATION, PERRL - ENT Exam ENT Exam: Mucous Membranes Moist - Respiratory Exam Respiratory Exam: Clear to Auscultation Bilateral, NORMAL BREATHING PATTERN. absent: Rales, Rhonchi - Cardiovascular Exam Cardiovascular Exam: REGULAR RHYTHM, +S1, +S2. absent: Gallop, Rubs, Systolic Murmur - GI/Abdominal Exam GI & Abdominal Exam: Normal Bowel Sounds, Soft. absent: Rebound, Rigid, Tenderness - Extremities Exam Extremities exam: Negative for: pedal edema Additional comments: tenderness in L popliteal region. Tenderness to R knee- sue bandage in place - Neurological Exam Neurological exam: Alert, CN II-XII Intact, Oriented x3 - Psychiatric Exam Psychiatric exam: Normal Affect, Normal Mood - Skin Skin Exam: Dry, Normal Color, Warm Results - Vital Signs Recent Vital Signs: Last Vital Signs Temp 98.3 F 01/06/17 06:00 Pulse 68 01/06/17 06:00 Resp 16 01/06/17 06:00 BP 104/60 01/06/17 06:00 Pulse Ox 95 01/06/17 06:00 - Labs Result Diagrams: 01/05/17 10:37 01/05/17 10:37 Labs: Laboratory Results - last 24 hr 01/05/17 17:20 Urine Color Yellow Urine Appearance Clear Urine pH 6.5 Ur Specific [place] 1.010 Urine Protein Negative Urine Glucose (UA) Negative Urine Ketones Negative Urine Blood Trace-lysed H Urine Nitrate Negative Urine Bilirubin Negative Urine Urobilinogen 0.2 Ur Leukocyte Esterase Trace H Urine RBC 0 - 2 Urine WBC 2 - 5 Ur Epithelial Cells 3 - 4 Urine Bacteria Few Assessment & Plan - Assessment and Plan (Free Text) Assessment: This is a 71Y F with PMH HTN, DM, DVT (on Eliquis), Breast ca s/p mastectomy who came to ED for dizziness and fall. Head CT was negative for acute pathology. Leg weakness can be secondary to peripheral neuropathy. Dizziness can be secondary to decreased cerebral perfusion from low BP. Patient can also have peripheral neuropathy secondary to chemo medication. Plan: - Will obtain Carotid dopplers - Will check orthostatics - ASA, Lipitor - Continue Eliquis - Will obtain venous doppler to r/o DVT - physical therapy - once patient is cleared by PT she can be d/c and follow up with Dr. Burnham as outpatient Case seen, discussed and reviewed with Dr. Burnham. Yolanda Hammonds PGY2 - Date & Time Date: 01/06/17 Time: 09:40 <Raul Burnham - Last Filed: 01/06/17 13:06> Meds - Medications Medications: Current Medications Aspirin (Ecotrin) 81 mg PO DAILY [facility] Last Admin: 01/06/17 11:56 Dose: 81 mg Atorvastatin Calcium (Lipitor) 20 mg PO DAILY [facility] Last Admin: 01/06/17 11:55 Dose: 20 mg Results - Vital Signs Recent Vital Signs: Last Vital Signs Temp 98.5 F 01/06/17 12:00 Pulse 80 01/06/17 12:00 Resp 20 01/06/17 12:00 BP 106/55 L 01/06/17 12:00 Pulse Ox 95 01/06/17 06:00 - Labs Result Diagrams: 01/05/17 10:37 01/05/17 10:37 Labs: Laboratory Results - last 24 hr 01/05/17 17:20 Urine Color Yellow Urine Appearance Clear Urine pH 6.5 Ur Specific [place] 1.010 Urine Protein Negative Urine Glucose (UA) Negative Urine Ketones Negative Urine Blood Trace-lysed H Urine Nitrate Negative Urine Bilirubin Negative Urine Urobilinogen 0.2 Ur Leukocyte Esterase Trace H Urine RBC 0 - 2 Urine WBC 2 - 5 Ur Epithelial Cells 3 - 4 Urine Bacteria Few Attending/Attestation - Attestation I have personally seen and examined this patient.: Yes I have fully participated in the care of the patient.: Yes I have reviewed all pertinent clinical information: Yes
--- NOTE | 2017-01-06 11:19 | CON ---
DATE: 01/06/2017 LOCATION: Room #262, bed #2. HISTORY OF PRESENT ILLNESS: The patient is a 71-year-old female, slipped and fell on the stairs yesterday, injured her right knee when she landed on the staircase, has an abrasion about a nickel size right over the patella with an epidermal abrasion and she has tenderness to the medial epicondyle. X-ray shows no fracture, and she has no effusion of that right knee. She has good range of motion and can do a straight leg raising. I feel as though she has a contusion and abrasion of right knee, treatable conservatively with exercise to strengthen the quadriceps and ambulation with a cane so that she minimizes her chance of falling and she does complain of pain of the left knee posteriorly as there may be a little arthrosis, so we are going to order standing x-rays of both knees, though she does have beginning of arthritis of the right knee with decreased joint space, but the standing x-rays will show how much thinner the medial joint space is of both knees so we will get a picture of her functional knee status by just getting standing x-rays and since there is no effusion, it is not likely she has any kind of nondisplaced fracture. We can evaluate her further in the office, and if the osteoarthritis is significant, she could consider the Hyalgan injections for pain relief as the knee arthritis will become more symptomatic when it is injured just because of the arthritis is present and the tendency is to increase the inflammation if you do traumatize it with arthritis. I am going to tell her to do home exercise and do a little exercise during the hospital and to ambulate with a cane. FINAL DIAGNOSES: Contusion, abrasion of right knee with underlying osteoarthritis . Filippo Cuenca DO
--- NOTE | 2017-01-06 11:25 | RAD ---
PROCEDURE: Left Knee Radiographs. HISTORY: Pain. COMPARISON: None. FINDINGS: BONES: Normal. No fracture. JOINTS: There is joint space narrowing in the medial compartment JOINT EFFUSION: None. OTHER FINDINGS: None. IMPRESSION: Joint space narrowing in the medial compartment
--- NOTE | 2017-01-06 12:24 | CARD ---
APPROVED REPORT EKG Measurement Heart [id number] <Conclusion> Normal sinus rhythm Incomplete right bundle branch block Left anterior fascicular block Cannot rule out Inferior infarct (masked by fascicular block?), age undetermined Possible Anterior infarct, age undetermined Abnormal ECG
--- NOTE | 2017-01-06 18:13 | US ---
PROCEDURE: Bilateral carotid artery duplex ultrasound HISTORY: Carotid stenosis syncope PHYSICIAN(S): Rajan Victoria MD. TECHNIQUE: Duplex sonography and color-flow Doppler were used to evaluate the carotid bifurcations and limited segments of the vertebral arteries bilaterally. FINDINGS: There is mild smooth heterogeneous plaque noted at the carotid bifurcations bilaterally. The peak systolic velocity in the proximal right internal carotid artery is 62 cm/sec. This corresponds to a 20 to 39% proximal right ICA stenosis. Normal systolic velocities are noted in the proximal right external carotid artery. There is antegrade flow in the right vertebral artery. The peak systolic velocity in the proximal left internal carotid artery is 66 cm/sec. This corresponds to a 20 to 39% proximal left ICA stenosis. Normal systolic velocities are noted in the proximal left external carotid artery. There is antegrade flow in the left vertebral artery. IMPRESSION: 1. Bilateral 20-39% proximal ICA stenoses. 2. Antegrade flow in both vertebral arteries.
[2017-01-07 00:14] VITALS: O2SAT 97
[2017-01-07 18:07] VITALS: BP 125/79; PULSE 77; RESP 20; TEMP 99.4
--- NOTE | 2017-01-08 20:17 | DS ---
HOSPITAL COURSE: This is a 71-year-old woman with past medical history of abdominal hernia, who presented to the emergency room after a fall at home. She reports that she was walking down stairs on the day of admission and fell. She denied loss of consciousness. She denies chest pain, palpitations or difficulty breathing. There are no visual symptoms, chest pain or diaphoresis. She was seen in the Emergency Room and agreed to stay overnight for observation. CT scan in the emergency room was unremarkable. Chest x-rays and knee x-rays were unremarkable. She denies shortness of breath or loss of consciousness. She is afebrile. Vital signs are stable. H and H were normal. Coags and chemistry were completely within normal limits. Troponin was negative. Urinalysis was essentially unremarkable with only trace leukocyte esterase. The patient was admitted to a monitored bed, watched overnight on telemetry with no ectopy seen on the monitor. She was seen and admitted by Dr. Federico Rehman yesterday. Today, I saw her, she is awake, alert, clear and appropriate in bed, denying any symptoms and looking forward very much and wanting to go home. I asked her if she felt comfortable and steady on her feet and she said she was. I asked her if she wanted to stay for additional therapy for transitional care sessions and she declined that option, wanting to go home. She lives at home alone, but has help and friends who check on her regularly and so with an unremarkable history except for fall on the stairs. No physical finding, abnormalities and a negative workup with no ectopy on the monitor. She was discharged to home to followup with us in the office in approximately 1 week. FINAL DISCHARGE DIAGNOSES: 1. Fall with no loss of consciousness. 2. History of hypertension. 3. History of hyperlipidemia. 4. Sinus rhythm with an incomplete right bundle and left inferior hemiblock. 5. Contusion of the right knee with underlying arthritis, as seen by orthopedist Dr. Graves. 6. History of deep venous thrombosis and therefore, continue on Eliquis. PLAN: After discharge, patient will be seen in the office in 1 week. Medications will be reviewed with Dr. Federico Rehman as well as continue her Eliquis. Amaury Rehman MD [facility]
== END 2017-01-07 18:56 | disposition home or self-care (01) | DRG 149 ==
LOC: ED 09:46 → ERH 13:38 → 2RNO 19:05 → OBSVTOIN 01-06 18:21
PROVIDERS: ADMIT Internal Medicine; ATTEND Internal Medicine
DX: R42 Dizziness and giddiness (principal); S09.90XA Unspecified injury of head, initial encounter; G62.0 Drug-induced polyneuropathy; J44.9 Chronic obstructive pulmonary disease, unspecified; S80.01XA Contusion of right knee, initial encounter; S80.211A Abrasion, right knee, initial encounter; W10.8XXA Fall (on) (from) other stairs and steps, initial encounter; M17.11 Unilateral primary osteoarthritis, right knee; I10 Essential (primary) hypertension; E78.5 Hyperlipidemia, unspecified; T45.1X5A Adverse effect of antineoplastic and immunosuppressive drugs, initial encounter; E11.9 Type 2 diabetes mellitus without complications; K21.9 Gastro-esophageal reflux disease without esophagitis; K46.9 Unspecified abdominal hernia without obstruction or gangrene; Z86.718 Personal history of other venous thrombosis and embolism; Z79.01 Long term (current) use of anticoagulants; Z79.899 Other long term (current) drug therapy; Z86.73 Personal history of transient ischemic attack (TIA), and cerebral infarction without residual deficits; Z87.01 Personal history of pneumonia (recurrent); Z85.3 Personal history of malignant neoplasm of breast; Z90.10 Acquired absence of unspecified breast and nipple; Y93.01 Activity, walking, marching and hiking; Y92.098 Other place in other non-institutional residence as the place of occurrence of the external cause; Y99.9 Unspecified external cause status